=== PATIENT | male | born 1945 | race Caucasian/White ===

== ENCOUNTER 2018-05-03 08:48 | Day surgery (SDC) | payer OTHER ==
--- NOTE | 2018-04-24 18:57 | HP ---
CC: Steven Vargas MD * ADMISSION HISTORY AND PHYSICAL: DATE OF ADMISSION: 05/03/18 ATTENDING SURGEON: Claudy Donis MD * (SHAE Martel, dictating) CHIEF COMPLAINT: Symptomatic cholelithiasis. HISTORY OF PRESENT ILLNESS: This is a 73-year-old male who about 3 weeks ago experienced acute onset of what he describes as shoulder pain radiating to and across the lower abdomen and around the lower trunk. He states the pain was severe and lasted all night. It did begin to subside the next day or so. He has not had any prior similar symptoms or subsequent attacks. It was associated with decreased appetite, but no nausea, vomiting, fever, or chills. He had a prior CT scan on 03/30/18 which did not show any gallbladder pathology. It did show known multiple bilateral renal stones with mild hydronephrosis on the left. Also noted were a small hiatal hernia with mild thickening of the distal esophagus and a small periumbilical hernia containing small bowel, but without evidence of obstruction. The patient denies any change in the color of his urine or stools. He did have lab work on 04/10/18, CBC was normal. His glucose was mildly elevated at 160 (nonfasting). Urinalysis showed 3 to 4 RBC's. LFT's were not performed. A subsequent ultrasound on did show multiple gallstones with mild gallbladder wall thickening as well as confirmation of multiple renal stones on the right. The patient was seen by Dr. Donis on 04/13/18. Dr. Donis felt that his symptoms did represent biliary colic and recommended cholecystectomy. The patient is aware of the indications , risks, benefits, and alternatives as well as the expected perioperative course. He would like to proceed as scheduled with laparoscopic cholecystectomy. Of note, he did undergo ESWL in [place] on 04/18/18 for left- sided renal stones. PAST MEDICAL HISTORY: Hypertension, hyperlipidemia, uric acid nephrolithiasis, BPH, GERD. PAST SURGICAL HISTORY: Previous surgeries include partial colectomy in 2003 ( [place]) for what turned out to be a benign colonic lesion. Surgery was done via a low midline incision, tonsillectomy remotely. No reported surgical or anesthesia problems. ESWL x3, most recently as noted above. CURRENT MEDICATIONS: 1. Valsartan 80 mg once daily. 2. Tamsulosin 0.4 mg once daily. 3. Hydrochlorothiazide 12.5 mg once daily. 4. Allopurinol 100 mg once daily. 5. Aspirin 81 mg once daily (the patient instructed to hold preoperatively, his last dose being 04/23/18). 6. Fenofibrate 145 mg once daily. 7. Multivitamin once daily. 8. PreserVision AREDS once daily. 9. Stool softener 2 capsules b.i.d. DRUG ALLERGIES: None known. FAMILY HISTORY: Noncontributory largely because he is adopted and does not know many details regarding his biological family history. SOCIAL HISTORY: The patient is . He has 2 grown children. 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 He denies use of tobacco, alcohol, or recreational drugs. REVIEW OF SYSTEMS: General: No recent constitutional symptoms or acute illnesses other than described in the HPI. His weight has been stable. Eyes: No recent problems reported. Ears, Nose, Throat: No problems reported. Cardiovascular: History of hypertension. No history of CA or angina. Respiratory: No history of asthma, chronic cough, or shortness of breath. GI: As above per HPI. Colonoscopy done in 2013 with recommended 10-year followup. Some history of chronic constipation. No recent changes. : As above. Also BPH. Endocrine: No diabetes or thyroid dysfunction. Remainder of review of systems is negative. PHYSICAL EXAMINATION GENERAL: Well-nourished, well-developed male, in no acute distress. VITAL SIGNS: Height 5 feet 9 inches, weight 175 pounds. Blood pressure 116/68 , pulse 78, respirations 16. HEENT: Pupils equal, round, and reactive. EOMs intact. No conjunctival pallor. Oropharynx: Teeth in good repair. No intraoral lesions. NECK: No lymphadenopathy, thyromegaly, or masses. LUNGS: Clear to auscultation. No rales or wheezes. HEART: Regular rate and rhythm. No murmur noted. ABDOMEN: (Per Dr. Donis's exam) soft, nondistended. Minimal tenderness in the right upper quadrant upon deep palpation. No rebound. Well-healed midline incision. No hernia noted on that exam. No CVA tenderness. GENITALIA: Not done. RECTAL: Not done. BACK: No spinous process or CVA tenderness. EXTREMITIES: No edema. NEUROLOGICAL: Grossly intact. SKIN: Warm and dry. No suspicious rashes or lesions noted. IMPRESSION: Symptomatic cholelithiasis. PLAN: Laparoscopic cholecystectomy. SHAE MARTEL [id number]/[facility] #: [id number] MTDD
[~2018-05-03 08:48] MED LIST: Buffered Lidocaine 0.9% SYRIN* 5 ML/SYR SYRINGE INTRADERM ONE; Bupivacaine 0.5% SDV PF* 30ML VIAL ONE; Famotidine IV* 10 MG/ML 2 ML (20 mg) IV ONE; Metoclopramide TAB* 10 MG PO ONE
[2018-05-03] MEDS ORDERED: Metoclopramide TAB* 10 MG ONE (08:58)
[2018-05-03] MEDS ORDERED: ceFAZolin 2 GM PREMIX (*) 2 GM/50 ML BAG IVPB ONE (08:58)
[2018-05-03] MEDS ORDERED: Famotidine IV* 10 MG/ML 2 ML (20 mg) ONE (08:58)
[2018-05-03] MEDS ORDERED: Buffered Lidocaine 0.9% SYRIN* 5 ML/SYR SYRINGE ONE (08:59)
[2018-05-03] MEDS ORDERED: Ondansetron ODT TAB* 4 MG ONE (10:04)
[2018-05-03] MEDS ORDERED: Lidocaine 2% PF * 5 ML VIAL ONE (10:04)
[2018-05-03] MEDS ORDERED: KETAMINE HCL* 50 MG/ML 10 ML VIAL ONE (10:04)
[2018-05-03] MEDS ORDERED: Propofol* 10 MG/ML 20 ML BTL IV PUSH ONE (10:04)
[2018-05-03] MEDS ORDERED: fentaNYL* 50 MCG/ML 2 ML VIAL (100 MCG VIAL) ONE ×3 (10:04→13:37)
[2018-05-03] MEDS ORDERED: Ketorolac INJ* 30 MG/ML 1 ML VIAL ONE (10:04)
[2018-05-03] MEDS ORDERED: Midazolam* 1 MG/ML 5 ML VIAL (5 MG) ONE (10:04)
[2018-05-03] MEDS ORDERED: Dexamethasone IV* 4 MG/ML 1 ML (4 MG) ONE (10:04)
[2018-05-03] MEDS ORDERED: Cisatracurium* 2 MG/ML MDV 5 ML ONE (10:27)
[2018-05-03] MEDS ORDERED: EPHEDrine (Pressors)* 50 MG/ML VIAL ONE (11:01)
[2018-05-03] MEDS ORDERED: VASOPRESSIN 20 UNITS/ML 1 ML VIAL ONE (11:01)
[2018-05-03] MEDS ORDERED: Naloxone* 0.4 MG/ML 1 ML VIAL IV PRN (11:26)
[2018-05-03] MEDS ORDERED: Ondansetron INJ* 2 MG/ML VIAL IV PRN (11:26)
[2018-05-03] MEDS ORDERED: Metoprolol Tartrate IV* 1 MG/ML 5 ML VIAL ONE (11:29)
--- NOTE | 2018-05-03 12:09 | BRIEFOPN ---
Brief Operative Note - Surgery Procedures: Pre-OP Diagnoses: chronic cholecystitis Post-op Diagnosis: same Procedure: Laparoscopic cholecystectomy Surgeon: Gagandeep Asst: Wyatt Anethesia: ESHA Suggs EBL: minimal IVF: 1800cc Specimen: gallbladder Drains: none
[2018-05-03] MEDS: fentaNYL* 50 MCG/ML 2 ML VIAL (100 MCG VIAL) IV PRN ×2 (13:39→14:35)
--- NOTE | 2018-05-03 14:14 | OP ---
CC: Steven Vargas MD * DATE OF OPERATION: 05/03/18 - [facility] DATE OF : 45 SURGEON: Claudy Donis MD TABULATING MACHINE MECHANIC: SHAE Martel. ANESTHESIOLOGIST: Dr. Suggs. ANESTHESIA: General anesthesia. PRE-OP DIAGNOSIS: Chronic cholecystitis. POST-OP DIAGNOSIS: Chronic cholecystitis. OPERATIVE PROCEDURE: Laparoscopic cholecystectomy. ESTIMATED BLOOD LOSS: Minimal blood loss. IV FLUIDS: 1800 cc of crystalloid fluid given. SPECIMEN: Gallbladder. DESCRIPTION OF PROCEDURE: The patient was identified in the preoperative area. Consent signed. He was marked, brought to the operating room, placed on the operating table in supine position. Preoperative antibiotics were given, sequential devices were placed on bilateral lower extremities, general anesthesia was induced. The patient's abdomen was prepped and draped in the standard surgical fashion. A time-out was performed. A subcostal incision was made in the right upper quadrant. This was deepened down to the fascia, which was elevated and a Veress needle was inserted into the abdominal cavity which was then allowed to insufflate to a pressure of 15 mmHg. The patient tolerated the insufflation well. The Veress needle was removed and a 5- mm trocar was inserted at the site. Laparoscope was inserted through this and we looked around the abdomen, saw adhesions to the anterior abdominal wall, previous midline incision. We placed a periumbilical 5 mm port in under direct vision and shifted the camera to the side. We then placed a 12 mm in the subxiphoid area, and another 5 mm in the right costal region. The table was repositioned to head up the right side up. The gallbladder was identified. It was grasped at the fundus and elevated anteriorly and both sharp and blunt dissection was utilized to take down adhesions to lesser omentum. This was performed with ease. We then were able to see the infundibulum well. This was grasped and retracted towards the right lower quadrant. We could see what appeared to be cystic duct, but common bile duct was not quite visible. Next, we took the peritoneum off the lateral aspect of the gallbladder. This was very stiff and there was no [id number] planes. We did similar dissection medially. The tissue at the cystic duct appeared the easiest to manipulate and a window was made at what appeared to be the cystic duct. Cystic artery was isolated and doubly clipped and ligated. The gallbladder at the posterior wall was very thick . This was slowly taken down with both blunt dissection and sharp dissection and we took this up almost to the top of the gallbladder before we made the decision to clip the cystic duct. We did not see the common bile duct, but could only see 1 structure coming from the gallbladder proper. We did enter into the gallbladder at one point. Both bile and stones did fall out and these were retrieved. Next, the cystic duct was doubly clipped and ligated and the gallbladder was then ultimately removed from the liver bed, placed in the endoscopic retrieval bag, brought out through the subxiphoid port site. We suctioned off the bile and any stones that we could see. We then irrigated approximately 2 L of fluid and suctioned this off until the effluent was clear. We looked at the cystic duct. There was no evidence of bile leak or bleeding. Table was repositioned back in neutral and the abdomen was allowed to collapse. Trocar was removed under direct vision and all four skin incisions were reapproximated with 4-0 Monocryl subcuticular sutures followed by sterile dressing. [id number]/[facility] #: [id number] MICHAEL
[2018-05-03 14:34] VITALS: BP 112/72
== END 2018-05-03 15:19 | disposition home or self-care (01) ==
LOC: OR 08:48
PROVIDERS: ATTEND Surgery
DX: K80.10 Calculus of gallbladder with chronic cholecystitis without obstruction (principal); I10 Essential (primary) hypertension; E78.5 Hyperlipidemia, unspecified; K21.9 Gastro-esophageal reflux disease without esophagitis; N40.0 Benign prostatic hyperplasia without lower urinary tract symptoms
CPT/HCPCS: 88304; A9270-GY; J0690; J1100; J1885; J2250; J2704; J3010; J3490

== ENCOUNTER 2023-12-04 12:22 | Observation (INO) ==
[2023-12-04 12:53] LABS: ABS Basophils 0.1 10^3/uL (0.0-0.1); ABS Eosinophils 0.3 10^3/uL (0.0-0.5); ABS Lymphocytes 1.7 10^3/uL (1.0-4.8); ABS Monocytes 0.4 10^3/uL (0.0-1.1); ABS Neutrophils 1.8 10^3/uL (1.5-7.6); ABS Nucleated RBC 0.01 10^3/ul; Eosinophil % 6.3 %; Lymphocyte % 39.4 %; Mean Corpuscular Hemoglobin 30.7 pg (27-33); Mean Corpuscular Hgb Conc 34.2 g/dL (31-36); Mean Corpuscular Volume 89.8 fL (80-97); Mean Platelet Volume 7.5 fL (7.5-11.2); Nucleated Red Blood Cells % 0.1 %/100WBC (0.0-0.8); Platelet Count 173 10^3/uL (150-450); Red Cell Distribution Width 13.2 % (12-17); White Blood Count 4.2 10^3/uL (3.6-10.2)
[2023-12-04 13:03] LABS: INR 1.02 (0.83-1.13)
[2023-12-04 13:11] LABS: Albumin 4.3 g/dL (3.2-5.2); Albumin/Globulin Ratio 1.7 (1-3); Calcium 9.4 mg/dL (8.6-10.3); Globulin 2.6 g/dL (2-4); Magnesium 1.9 mg/dL (1.9-2.7); Potassium 4.2 mmol/L (3.5-5.0); Total Bilirubin 0.4 mg/dL (0.2-1.0); Total Protein 6.9 g/dL (6.4-8.9)
[2023-12-04 14:15] LABS: High Sensitivity Troponin 1 Hr 11 pg/mL (<20)
[2023-12-04] MEDS: Enoxaparin 40 MG/0.4 ML SYR SUBCUT SCH (16:35)
[2023-12-04] MEDS ORDERED: Lactated Ringers 1000 ml BAG 500 ML IV SCH (17:00)
[2023-12-04] MEDS ORDERED: Dextrose 50% Syringe 50 ml 25 GM/50 ML SYRINGE IV PUSH PRN (17:12)
[2023-12-04] MEDS ORDERED: EPINEPHrine Anaphylaxis SYR CERTADOSE SYR KIT IM PRN (17:12)
[2023-12-05] MEDS ORDERED: Lactated Ringers 1000 ml BAG 250 ML IV ONE (05:22)
[2023-12-05] MEDS ORDERED: Atropine 1 MG/ML INJ 1 ML VIAL IV PUSH PRN (05:44)
[2023-12-05 06:35] LABS: Calcium 9.5 mg/dL (8.6-10.3); Creatinine, Serum 0.94 mg/dL (0.67-1.17); Magnesium 1.9 mg/dL (1.9-2.7)
[2023-12-05 07:29] LABS: ABS Basophils 0.1 10^3/uL (0.0-0.1); ABS Eosinophils 0.2 10^3/uL (0.0-0.5); ABS Lymphocytes 2.2 10^3/uL (1.0-4.8); ABS Monocytes 0.6 10^3/uL (0.0-1.1); ABS Neutrophils 3.9 10^3/uL (1.5-7.6); Eosinophil % 3.2 %; Hematocrit 45.2 % (38-53); Hemoglobin 15.4 g/dL (13.2-16.3); Lymphocyte % 31.3 %; Mean Corpuscular Hemoglobin 30.8 pg (27-33); Mean Corpuscular Hgb Conc 34.1 g/dL (31-36); Mean Corpuscular Volume 90.3 fL (80-97); Mean Platelet Volume 8.5 fL (7.5-11.2); Platelet Count 174 10^3/uL (150-450); White Blood Count 6.9 10^3/uL (3.6-10.2)
[2023-12-05] MEDS ORDERED: Sulfur Hexaflouride MICROSPHR 25 MG VIAL ONE (08:26)
[2023-12-05] MEDS ORDERED: ceFAZolin SYR FLUSH 1 GM/10 ML for pocket flush (cardiology) FLUSH ONE (09:06)
[2023-12-05] MEDS ORDERED: fentaNYL 100 mcg/2 ml 50 MCG/ML VIAL IV SLOW PU ONE (09:06)
[2023-12-05] MEDS ORDERED: Midazolam 10 mg/10 ml VIAL 1 mg/ml 10 ml VIAL (10 mg) IV SLOW PU ONE (09:06)
[2023-12-05] MEDS ORDERED: ceFAZolin 2 GM in NS PREMIX 2 GM/100 ML BAG IVPB ONE (09:06)
[2023-12-05] MEDS ORDERED: NS 0.9% 1000 ml BAG 1,000 ML IV SCH (09:15)
[2023-12-05] MEDS ORDERED: Lidocaine 1% VIAL 10 MG/ML 30 ML VIAL ONE (13:14)
[2023-12-05] MEDS ORDERED: fentaNYL 100 mcg/2 ml 50 MCG/ML VIAL ONE (13:27)
[2023-12-05] MEDS ORDERED: Midazolam 5 mg/5 ml VIAL 1 mg/ml 5 ml VIAL (5 mg) ONE (13:27)
[2023-12-05] MEDS: Enoxaparin 40 MG/0.4 ML SYR SUBCUT SCH (16:20)
[2023-12-05 17:07] VITALS: BP 141/82
== END 2023-12-05 17:43 | disposition home or self-care (01) ==
LOC: ED 12:22 → EDHOLD 12:22 → SUATTDRO 14:42 → MEDTELE 22:37
PROVIDERS: ADMIT Student in an Organized Health Care Education/Training Program; ATTEND Internal Medicine